=== PATIENT | male | born 1950 | race Caucasian/White ===

== ENCOUNTER 2017-03-05 22:05 | Inpatient (IN) ==
[2017-03-06 00:47] LABS: Basophils % 0.2 %; Eosinophils % 0.9 %; Hematocrit 28.9 % (37.5-50.1); Hemoglobin 10.1 g/dL (12.9-16.9); Immature Granulocytes % 0.2 % (0-4); Lymphocytes # 0.4 K/mcL (0.6-4.6); Lymphocytes % 8.3 %; Mean Corpuscular HGB Conc 34.9 g/dL (31.6-35.5); Mean Corpuscular Hemoglobin 34.6 pg (28.0-33.3); Mean Platelet Volume 9.9 fL (9.4-12.4); Monocytes # 0.6 K/mcL (0.0-1.3); Monocytes % 14.5 %; Neutrophils # 3.3 K/mcL (1.6-8.9); Platelet Count 101 K/mcL (140-400); Red Blood Count 2.92 M/mcL (4.19-5.50); Red Cell Distribution Width 17.3 % (11.5-14.5); Segmented Neutrophils % 75.9 %
[2017-03-06] MEDS ORDERED: *HR* HYDROcodone/Acet 5/325 mg TABLET PO PRN (00:51)
[2017-03-06] MEDS ORDERED: Acetaminophen 325 MG TABLET PO PRN (00:51)
[2017-03-06] MEDS ORDERED: Ondansetron 4 MG/2 ML VIAL IVP PRN (00:51)
[2017-03-06] MEDS ORDERED: Naloxone 0.4 MG/ML INJ IVP PRN (00:51)
[2017-03-06] MEDS ORDERED: *HR* Morphine 2 MG/ML SYRINGE IVP PRN (00:51)
[2017-03-06] MEDS ORDERED: MOM Conc 10 ML UD.LIQ PO PRN (00:51)
[2017-03-06] MEDS ORDERED: 0.9 % Sodium Chloride 1,000 ML IVC SCH (01:00)
[2017-03-06 01:01] LABS: BUN/Creatinine Ratio 19 (6-26); Blood Urea Nitrogen 23 mg/dL (8-26); Carbon Dioxide 20 mEq/L (19-29); Chloride 105 mEq/L (98-109); Glucose 98 mg/dL (70-99); Magnesium 1.9 mg/dL (1.6-2.6); Osmolality,Calculated 282 (280-300); Potassium 3.9 mEq/L (3.5-4.5); Sodium 134 mEq/L (136-145); eGFR For African Americans > 60 (> 60); eGFR For Non-African Americans > 60 (> 60)
--- NOTE | 2017-03-06 01:10 | Internal Med History&Physical ---
Date of Encounter: 03/06/17 Time of Encounter: 00:30 Assessment and Plan (1) Acute non-ST elevation myocardial infarction (NSTEMI) Current visit: Yes Status: Acute Admit the pt into Tele Reviewed his labs from [place] - Trop @ 0.725 his WBC - 4.5 Na; 133, K +-4.0, BUN/ Cr: 22/1.21 Reviewed EKG by myself.. NSR VR @79, abnormal T wave in lateral leads, Non specific ST changes in lateral leads will cont him on Heparin gtt NPO now -- for possible LHC in AM Trend on Trop + CK MB Card consulted Cont ASA + Metoprolol IV hydration (2) CAD (coronary artery disease), [place] coronary artery Current visit: Yes Status: Chronic s/p PCI in 2001 resumed home meds Qualifiers: Qualified Code(s): I25.10 - Atherosclerotic heart disease of [place] coronary artery without angina pectoris (3) HTN (hypertension) Current visit: Yes Status: Acute stable with current meds Qualifiers: Hypertension type: essential hypertension Qualified Code(s): I10 - Essential (primary) hypertension (4) Rectal adenocarcinoma Current visit: Yes Status: Acute need to f/u with Heme Onc from [place] (5) LA NENA (acute kidney injury) Current visit: Yes Status: Acute Mild LA NENA mostly dehydration started on gentle IV fluids (6) UTI (urinary tract infection) Current visit: Yes Status: Acute reviewed UA - showed large esterase will cont Rocephin - given at [facility] f/u on Urine cx Qualifiers: Qualified Code(s): N39.0 - Urinary tract infection, site not specified (7) Ileostomy care Current visit: Yes Status: Acute (8) BPH (benign prostatic hyperplasia) Current visit: Yes Status: Chronic resumed home med Flomax Qualifiers: Qualified Code(s): N40.0 - Benign prostatic hyperplasia without lower urinary tract symptoms Internal Medicine - H&P: HPI Chief complaint: Lightheadedness and dizziness Admitted From: Hospital to Hospital Transfer (From [facility]) Plans for Post Hospital Care: Home History of present illness: Mr. Goodson is a 66 year old male with known PMH of CAD s/p stent x 1 in 2001, who recently diagnosed Adeno carcinoma of rectum in 04/2016 underwent Chemo, radiotherapy as well as Derik colectomy with ileostomy in october 2016, and currently on active chemotherapy presented to [place] [facility] with worsening lightheadedness and dizziness from last couple of days. He was recently diagnosed with UTI and started on Bactrim as an out a week ago. He had further work up done at the [place] [facility], his Troponin were high @ 0.72 and T wave abnormality on the EKG. However pt denied any active CP. He was transferred to our hospital for further care. Our jewel bearing facer Dr. Rivas did review pt's EKG, labs and recommend to admit the pt into hospitalist service and consult cardiology in AM Past Med Surg Social Fam HX - Past Medical History Medical history: hyperlipidemia, hypertension, myocardial infarction - Past Surgical History Surgical History: colectomy, other - Social History Smoking Status: Never smoker Smokeless Tobacco Status: No Alcohol use: none Drug use: none - Family History Father Adopted: [place]: Daryn Goodson Family Member Ethnicity: Non- Living Status: Age at : 73 Cause of : heart failure Hx Family Cardiac Disorders: Yes Hx Family Respiratory Disorders: No Hx Family Cancer: No Hx Family GI Disorders: No Hx Family Genitourinary Disorders: No Hx Family Endocrine Disorder: Yes Internal Medicine - H&P: Meds Aspirin Enteric Coated [Aspirin EC] 81 mg PO DAILY 06/20/16 [History] Atorvastatin [Lipitor] 10 mg PO DAILY 06/20/16 [History] Glucosamine Sulfate Dipot Chlr [Glucosamine] 1,000 mg PO DAILY 06/20/16 [History ] Metoprolol [Lopressor] 0.5 tab PO BID 06/20/16 [History] Multivitamin [One Daily Multivitamin] 1 each PO DAILY 06/20/16 [History] Capecitabine [Xeloda] 1,500 mg PO BID 01/19/17 [History] Tamsulosin [Flomax] 0.4 mg PO DAILY 01/19/17 [History] 3 Allergy/AdvReac Type Severity Reaction Status Date / Time TAPE (TEGADERM) AdvReac Rash Uncoded 01/19/17 15:18 All Systems PM: A 10-system review of systems was performed and is negative for pertinent findings except as documented above in the HPI. Review of systems: All the systems are reviewed everything is benign except the systems and symptoms I mentioned in the history of present illness - Constitutional Vitals: Temp Pulse Resp BP Pulse Ox 98.0 F 75 16 104/68 100 03/06/17 00:14 03/06/17 00:14 03/06/17 00:14 03/06/17 00:14 03/06/17 00:14 General appearance: Present: A&O X 3, no acute distress, answers questions appropriately - Head Head exam: Present: atraumatic, normal inspection - Neck Neck exam general surgery: Present: supple - Respiratory Respiratory exam: Present: CTAB. Absent: accessory muscle use, rales, rhonchi, wheezes - Cardiovascular Cardiovascular exam: Present: RRR, +S1, +S2. Absent: diastolic murmur, gallop, rubs, systolic murmur - GI/Abdominal GI/Abdominal exam: Present: normal bowel sounds, soft. Absent: rebound, rigid, tenderness Additional comments: Ileostomy + - Extremities Exam Extremities exam: Absent: calf tenderness, pedal edema, tenderness - Back Exam Back exam: Absent: CVA tenderness (L), CVA tenderness (R) - Neurological Exam Neurological exam: Present: alert, oriented X3, no focal deficits - Psychiatric Psychiatric exam: Present: normal affect, normal mood - Skin Skin exam: Absent: rash Internal Med - H&P Results - Labs CBC & Chem 7: 03/06/17 00:40 03/06/17 00:40 Labs: Short CBC 03/06/17 Range/Units 00:40 WBC 4.3 (4.3-11.1) K/mcL Hgb 10.1 L (12.9-16.9) g/dL Hct 28.9 L (37.5-50.1) % Plt Count 101 L (140-400) K/mcL Neutrophils # 3.3 (1.6-8.9) K/mcL BMP 03/06/17 00:40 Sodium 134 L Potassium 3.9 Chloride 105 Carbon Dioxide 20 BUN 23 Creatinine 1.19 Glucose 98 Calcium 9.0
[2017-03-06] MEDS ORDERED: *HR* Heparin 5,000 UNIT/ML VIAL IVP ONE (01:40)
[2017-03-06] MEDS ORDERED: *HR* Heparin 5,000 UNIT/ML VIAL IVP PRN (01:40)
[2017-03-06] MEDS: Heparin 25,000 UNIT/500 ML D5W 25,000 UNIT/500 ML BAG IVC SCH (04:13)
[2017-03-06] MEDS: *HR* Heparin 5,000 UNIT/ML VIAL IVP PRN (04:18)
[2017-03-06 06:41] LABS: Chol/HDL Ratio 2.1 (0-4.9)
[2017-03-06 06:51] LABS: INR 5.7; Prothrombin Time 63.7 Seconds (9.4-12.1)
[2017-03-06] MEDS: Aspirin Enteric Coated 81 MG Tablet PO SCH (08:19)
[2017-03-06] MEDS: cefTRIAXone 1,000 MG in Water for inj. (sterile) 10 ML IVP SCH (08:19)
--- NOTE | 2017-03-06 11:08 | Cardiology Consult Note ---
Date of Encounter: 03/06/17 Time of Encounter: 09:00 Assessment and Plan (1) CAD (coronary artery disease), [place] coronary artery Current Visit: Yes Status: Chronic S/p stent 2001 Troponin .72 Pritesh, .84, .[address]/T-wave abnormality precordial leads Plan: No chest pain, shortness of breath, exertional discomfort, pending echocardiogram. Depending on echo results may consider LHC. Discussed plan with pt and understand and both agree to planned diagnostics /interventions. Qualifiers: [place] vs. transplanted heart: [place] heart Associated angina: without angina Qualified Code(s): I25.10 - Atherosclerotic heart disease of [place] coronary artery without angina pectoris (2) HTN (hypertension) Current Visit: Yes Status: Acute Chronic condition, normotensive, on Metoprolol 25mg PO BID. Qualifiers: Hypertension type: essential hypertension Qualified Code(s): I10 - Essential (primary) hypertension (3) Rectal adenocarcinoma Current Visit: Yes Status: Acute Currently taking Xeloda (Capecitabine). Xeloda has potential ADR profile for cardiotoxicity. Monitor. Pt following [facility] oncologist. (4) LA NENA (acute kidney injury) Current Visit: Yes Status: Acute On gentle hydration. Discussion w patient/family: The assessment and plan as outlined above was discussed with the patient and/or family members who expressed understanding and agreement. All questions were answered. Thank you for involving us in the care of your patient. Please call with any questions. History of Present Illness Consult date: 03/06/17 Requesting physician: Pradeep Lui Consult reason: Elevated Troponin, ST/T-wave abnormality Chief complaint: Lightheadness, dizziness History of present illness: Mr. Goodson, 66y/o presents with 2 days of lightheadedness and dizziness with PMH CAD s/p stenting x1 2001, diagnosis of Adeno carcinoma of rectum Apr 2016, on chemo. Transferred from [place] for troponin of 0.72 with t-wave abnormality on ECG, denying chest/arm/jaw/back symptoms. Past social: never-smoker, no EtOH , reports jogging a few miles a week, was more active prior to diagnosis of cancer. Cardiology consulted for troponin elevation (.72 Pritesh, .84, .73), ECG repeated showing persisting ST abnormality. Pt has no new symptoms, reports mild lightheadedness. Denies chest/arm/jaw/back symptoms. Past Med Surg Social Fam HX - Past Medical History Medical history: hyperlipidemia, hypertension, myocardial infarction - Past Surgical History Surgical History: colectomy, other - Social History Smoking Status: Never smoker Smokeless Tobacco Status: No Alcohol use: none Drug use: none - Family History Father Adopted: [place]: Daryn Goodson Family Member Ethnicity: Non- Living Status: Age at : 73 Cause of : heart failure Hx Family Cardiac Disorders: Yes Hx Family Respiratory Disorders: No Hx Family Cancer: No Hx Family GI Disorders: No Hx Family Genitourinary Disorders: No Hx Family Endocrine Disorder: Yes Medications and Allergies Aspirin Enteric Coated [Aspirin EC] 81 mg PO DAILY 06/20/16 [History] Atorvastatin [Lipitor] 10 mg PO DAILY 06/20/16 [History] Glucosamine Sulfate Dipot Chlr [Glucosamine] 1,000 mg PO DAILY 06/20/16 [History ] Metoprolol [Lopressor] 25 tab PO BID 06/20/16 [History] Multivitamin [One Daily Multivitamin] 1 each PO DAILY 06/20/16 [History] Capecitabine [Xeloda] 1,300 mg PO BID 01/19/17 [History] Tamsulosin [Flomax] 0.4 mg PO DAILY 01/19/17 [History] RX: Sulfamethoxazole/Trimeth DS [Bactrim Ds] 1 tab PO BID 03/06/17 [History] 3 Allergy/AdvReac Type Severity Reaction Status Date / Time TAPE (TEGADERM) AdvReac Rash Uncoded 03/06/17 07:27 All Systems Review: A 10-system review of systems was performed and is negative for pertinent findings except as documented above in the HPI. Physical Examination Vital Signs, Last 4 Hours Temp Pulse Resp BP Pulse Ox 03/06/17 07:51 97.7 F 83 18 101/44 97 General: Conversant, Other (slim body habitus, chest hair) HEENT: Atraumatic, Normocephaly Neck: No JVD, Normal carotid pulses Cardiac: Reg Rate and Rhythm, Normal S1 and S2, No Murmur Lungs: No Wheeze, Rales, Rhonchi Neuro: No focal deficits noted Abdomen: Soft Musculoskeletal: No Chest Wall Tenderness Extremities: No Clubbing, No Cyanosis, No Edema Results 03/06/17 00:40 03/06/17 00:40 Lab Results 03/06/17 03/06/17 03/06/17 00:40 00:40 00:40 WBC 4.3 Hgb 10.1 L Hct 28.9 L Plt Count 101 L INR APTT TNP Sodium 134 L Potassium 3.9 Chloride 105 Carbon Dioxide 20 BUN 23 Creatinine 1.19 Glucose 98 Calcium 9.0 Magnesium 1.9 Troponin I 03/06/17 03/06/17 03/06/17 00:40 02:15 06:10 WBC Hgb Hct Plt Count INR APTT 33.0 Sodium Potassium Chloride Carbon Dioxide BUN Creatinine Glucose Calcium Magnesium Troponin I 0.84 H* 0.73 H* 03/06/17 06:10 WBC Hgb Hct Plt Count INR 5.7 H* APTT Sodium Potassium Chloride Carbon Dioxide BUN Creatinine Glucose Calcium Magnesium Troponin I Consult Discharge Plan - Plan Referrals: Patrick Long MD [Primary Care Provider] - 03/17/17 2:00 pm (Follow up with Siri Subramanian CNP)
[2017-03-06 12:44] LABS: INR 1.2
--- NOTE | 2017-03-06 12:45 | Internal Med Progress Note ---
<MayDarrel lilly - Last Filed: 03/06/17 12:53> Date of Encounter: 03/06/17 Time of Encounter: 12:17 - Assessment and plan (1) Acute non-ST elevation myocardial infarction (NSTEMI) Current Visit: Yes Status: Acute Assessment and plan: Elevated serial troponins EKG NSR VR @79, abnormal T wave in lateral leads, Non specific ST changes in lateral leads Continue on Heparin gtt NPO for possible heart cath Appreciate cardiology input Cont ASA + Metoprolol (2) CAD (coronary artery disease), [place] coronary artery Current Visit: Yes Status: Chronic Assessment and plan: s/p PCI in 2001 Continue home meds (Lopressor, ASA, Lipitor) (3) HTN (hypertension) Current Visit: Yes Status: Acute Assessment and plan: stable Qualifiers: Hypertension type: essential hypertension Qualified Code(s): I10 - Essential (primary) hypertension (4) Rectal adenocarcinoma Current Visit: Yes Status: Acute Assessment and plan: Following with heme/Onc in [place] (5) LA NENA (acute kidney injury) Current Visit: Yes Status: Acute Assessment and plan: Mild LA NENA Received IV hydration Resolved as of this morning's labs (6) UTI (urinary tract infection) Current Visit: Yes Status: Acute Assessment and plan: Large leukocyte esterase on UA Continue Rocephin Follow urine culture Qualifiers: Qualified Code(s): N39.0 - Urinary tract infection, site not specified - Subjective Interval history: 66-year-old male presented to outside ED for lightheadedness/dizziness and was found to have elevated troponin (0.72, 0.84, 0.73). Transferred to [facility] where he was admitted for cardiac workup. Repeat EKG here showed persistent ST abnormality. Patient denied chest pain, arm/jaw/back symptoms. - Constitutional Vitals: Temp Pulse Resp BP Pulse Ox 97.8 F 68 17 85/54 96 03/06/17 11:05 03/06/17 11:05 03/06/17 11:05 03/06/17 11:05 03/06/17 11:05 General appearance: Present: A&O X 3, no acute distress, answers questions appropriately Internal Medicine: Result - Labs CBC & Chem 7: 03/06/17 00:40 03/06/17 00:40 Labs: Short CBC 03/06/17 Range/Units 00:40 WBC 4.3 (4.3-11.1) K/mcL Hgb 10.1 L (12.9-16.9) g/dL Hct 28.9 L (37.5-50.1) % Plt Count 101 L (140-400) K/mcL Neutrophils # 3.3 (1.6-8.9) K/mcL BMP 03/06/17 00:40 Sodium 134 L Potassium 3.9 Chloride 105 Carbon Dioxide 20 BUN 23 Creatinine 1.19 Glucose 98 Calcium 9.0 Cardiac Enzymes 03/06/17 03/06/17 Range/Units 00:40 06:10 Troponin I 0.84 H* 0.73 H* (0-0.03) ng/mL - ABG Interpretation ABG results: PT/INR, D-dimer PT 63.7 Seconds (9.4-12.1) H* 03/06/17 06:10 Consult Discharge Plan - Plan Referrals: Patrick Long MD [Primary Care Provider] - 03/17/17 2:00 pm (Follow up with Siri Subramanian CNP) <Clem Gaytan H - Last Filed: 03/06/17 15:18> Date of Encounter: 03/06/17 - Constitutional Vitals: Temp Pulse Resp BP Pulse Ox 97.8 F 68 17 85/54 96 03/06/17 11:05 03/06/17 11:05 03/06/17 11:05 03/06/17 11:05 03/06/17 11:05 Internal Medicine: Result - Labs CBC & Chem 7: 03/06/17 00:40 03/06/17 00:40 Labs: Short CBC 03/06/17 Range/Units 00:40 WBC 4.3 (4.3-11.1) K/mcL Hgb 10.1 L (12.9-16.9) g/dL Hct 28.9 L (37.5-50.1) % Plt Count 101 L (140-400) K/mcL Neutrophils # 3.3 (1.6-8.9) K/mcL BMP 03/06/17 00:40 Sodium 134 L Potassium 3.9 Chloride 105 Carbon Dioxide 20 BUN 23 Creatinine 1.19 Glucose 98 Calcium 9.0 Cardiac Enzymes 03/06/17 03/06/17 03/06/17 Range/Units 00:40 06:10 12:25 Troponin I 0.84 H* 0.73 H* 0.55 H* (0-0.03) ng/mL - ABG Interpretation ABG results: PT/INR, D-dimer PT 13.0 Seconds (9.4-12.1) H D 03/06/17 12:25 - Impressions Impressions Echocardiogram 03/06/17 10:16 Impressions: LVEF 55%. Normal LV systolic function with mild hypokinesis of the basal inferolateral wall. Mild left ventricular diastolic dysfunction. Normal right ventricular structure and function. Mild mitral regurgitation. No pulmonary hypertension. Left Ventricular Wall Motion: Rest Echo Findings The basal inferior lateral wall was hypokinetic. All other wall segments showed normal motion. Findings: Study Quality * Technically adequate exam. ECG Findings * Normal sinus rhythm. Left Ventricle * LVEF 55%. * Normal LV chamber size, wall thickness and function. * Basal sigmoid septum. * Mild left ventricular diastolic dysfunction. Right Ventricle * Normal right ventricular structure and function. Left Atrium * Normal left atrial size. Right Atrium * Normal right atrial size. Aortic Valve * No aortic regurgitation. * Trileaflet aortic valve. * Normal aortic valve structure. * No aortic stenosis. Mitral Valve * Normal mitral valve structure. * No mitral stenosis. * Mild mitral regurgitation. Tricuspid Valve * Normal tricuspid valve structure. * Trace tricuspid regurgitation. * Estimated RA pressure is 3 mmHg. * Estimated RVSP is 20 mmHg. * No pulmonary hypertension. Pulmonic Valve * Pulmonic valve is not well visualized. * No pulmonic stenosis. * Trace pulmonic regurgitation. Pulmonary Artery * Pulmonary artery not well visualized. Aorta * Normally sized aortic root. Pericardium * There is no pericardial effusion present. Interatrial Septum * No evidence of PFO by color Doppler. IVC * Normal IVC dimensions and inspiratory collapse. - Attending Attestation Cardiac catheterization today UTI, it grew Escherichia coli on March 03 which was pansensitive Continue Rocephin day 2 I examined this patient and my medical decision-making was reviewed with the Resident Physician. I agree with the documented findings, disposition and treatment plan as described except to the extent set forth below.
[2017-03-06 13:02] LABS: Activated Partial Thrombo Time 166.2 Seconds (26.0-36.0)
[2017-03-06 13:25] LABS: Heparin anti-factor XA UFH 0.74 IU/mL (0.30-0.70)
[2017-03-06] MEDS ORDERED: 0.9 % Sodium Chloride 1,000 ML ONE ×2 (17:18→17:46)
[2017-03-06] MEDS ORDERED: Nitroglycerin 1,000 MCG/10 ML VIAL IV ONE (17:18)
[2017-03-06] MEDS ORDERED: *HR* Heparin 10,000 UNIT/10 ML VIAL ONE (17:18)
[2017-03-06] MEDS ORDERED: Heparin 1,000 UNIT, 0.9 % Sodium Chloride 500 ML INARTERIAL ONE (17:30)
[2017-03-06] MEDS ORDERED: *HR* Midazolam HCl 2 MG/2 ML VIAL ONE (17:50)
--- NOTE | 2017-03-06 18:37 | Invasive Diagnostic Lab Proc ---
Name: FREDIS GARCIA Date of Study: 03/06/2017 Date: 1950 Ht: 65.0in Medical Record#: [id number] Age: 66 Wt: 127.87lb Gender: Male BSA: 1.63 Order #: [id number] BMI: 21.3 Physicians Procedure Physician: Lawrence Rivas DO Referring MD: Patrick Long MD Referring MD: Staff Name Position Time In Yajaira Torres RN Monitor 05:56 PM Chanel Cosme RN Nursing Department Chairperson 05:57 PM Karina Ramírez RT Scrub 05:57 PM Indications Indication Non-Stemi Procedures Performed Procedure L HRT ARTERY/VENTRICLE ANGIO Pre-Procedure Checklist Informed consent is complete signed and on chart. H&P is on chart. ID band is on and ID verified with patient. Patient NPO for procedure The procedure was described for the patient and questions were answered. Blood Pressure: 114/65 ECG is on chart. Rhythm: NSR Plan of Care Patient will tolerate the procedure without complications. Adequate level of comfort will be maintained. Hemodynamics will remain stable Patient will recover from procedure without complications. Respiratory function will be maintained. Cardiac rhythm will remain stable. Patient temperature will be maintained. Patient and/or family have verbalized understanding of the procedure. Patient Education Chief Complaint/Reason for Test: Cardiac Cath Developmental Category: Adult (18-64 years) Developmentally Appropriate for Age: Yes Learning Barriers: None Education Needs: Procedure Education Method: Verbal Information Taught: Cardiac Cath Educational Evaluation: Able to repeat information Intravenous Access Time IV Size Location DC'd Fluid/Drip Rate Units RN 05:55 PM Venous access port Lt Subclavian 0.9NaCl 25 ml/hr Yajaira Torres RN Allergies TAPE (TEGADERM) Vital Signs Time BP (mmHg) HR (bpm) O2 Sat. RR (bpm) LOC 05:56 PM 114 / 65 69 100 % 16 5 = Fully awake and oriented or at pre-proc level 05:58 PM / % 5 = Fully awake and oriented or at pre-proc level 05:56 PM 105 / 67 74 100 % 14 06:01 PM 115 / 78 68 100 % 29 06:06 PM 115 / 68 67 100 % 15 06:11 PM 112 / 70 72 100 % 15 06:16 PM 111 / 71 74 100 % 16 06:21 PM 116 / 74 79 100 % 16 05:51 PM 114 / 65 76 100 % 18 05:58 PM / % 4 = Oriented but drowsy 06:13 PM / % 5 = Fully awake and oriented or at pre-proc level Procedural Medications Time Medication Dose Units Method Given By 05:57 PM Oxygen 2 L/min nasal cannula Chanel Cosme RN 05:57 PM Versed 2 mg Intravenous Chanel Cosme RN 05:59 PM Lidocaine 2% 10 ml Subcutaneous Lawrence Rivas DO ASA Classification: CLASS II- Mild systemic disease (i.e. well-controlled diabetes, hypertension, asthma, cigarette smoking) [place] Score Preprocedure Postprocedure Activity 2- Moves 4 extremities sustained head lift Activity 2- Moves 4 extremities sustained head lift Circulation 2- SBP +/= 20 points of pre-anesthetic level Circulation 2- SBP +/= 20 points of pre-anesthetic level Consciousness 2- Awake and alert oriented x 3 Consciousness 2- Awake and alert oriented x 3 O2 Saturation 2- Able to maintain O2 satruation of 92% on room air O2 Saturation 2- Able to maintain O2 satruation of 92% on room air Respiratory 2- Able to deep breathe and cough well Respiratory 2- Able to deep breathe and cough well Total Score 10 Total Score 10 Contrast Agent: Isovue Diagnostic Contrast: 47 ml Total Contrast: 47 ml Fluoro Dose: 123 mGy Procedure Log Time Note Enter By 05:50 PM CathStat 05:50 PM Vitals capture started with the following parameters, Patient=Adult, Interval=5 min, Initial Gpfxwmmj=562 mmHg, Deflation Rate=5 mmHg, Cuff placed on Right Arm 05:51 PM HR=76 bpm, OPPE=064/65 mmhg, EgX6=685.0 %, Resp=18 B/min, Comment=NSR 05:52 PM Recorded ECG: HR=67 Condition=Condition 1 05:56 PM HR=74 bpm, MJMT=830/67 mmhg, GvA7=939.0 %, Resp=14 B/min, Comment=NSR 05:56 PM Pt arrived to [facility] found[facility] lab[facility] 2 at 17:56 [facility] 05:56 PM Physician arrived 17:56 [facility] 05:56 PM Meet and greet completed [facility] 05:56 PM Sign in performed according to hospital policy. [facility] 05:56 PM Procedure start 17:56 [facility] 05:57 PM Pressure channel 1 zeroed. 05:57 PM Parsley, Yajaira RN Position: Monitor [facility]: 17:56 [facility] Chanel Cosme RN Position: Nursing Department Chairperson Time in: : [facility] :57 PM Karina Ramírez Position: Scrub Time in: :57 [facility] 05:57 PM Patient charges- Angio tray pack, Navilyst 3mm J, Pulse Oximetry and ACIST tubing and transducer [facility] :57 PM Case Delayed No [facility] PM Hair removed from procedure site in procedure lab using clippers. Bilateral groin prepped with Chloraprep by Yajaira Torres RN, safety strap applied then patient was draped. Skin intact. [facility] :57 PM ASA Class CLASS II- Mild systemic disease (i.e. well-controlled diabetes, hypertension, asthma, cigarette smoking) [facility] 57 PM Time: 17:57 Oxygen on at 2 L/min per nasal cannula by Chanel Cosme RN [facility] 57 PM Time: 17:57 Versed 2 mg Intravenous Given by Chanel Cosme RN [facility] 58 PM Time: 17:57 Patient comfortable and pain free: Yes [facility] 58 PM Time: 17:58LOC: 5 = Fully awake and oriented or at pre-proc level [facility] :58 PM Clinical Presentation: Non-STEMI [facility] 58 PM Time out performed according to hospital policy [facility] 05:59 PM Time: 17:59 10 ml Lidocaine 2% to right groin Subcutaneous Given by Lawrence Rivas DO [facility] 06:00 PM Micro-Introducer Kit utilized for sheath placement [facility] 06:00 PM Access obtained by percutaneous puncture. 6Fr 10cm Terumo [place] sheath placed in right Femoral artery. [id number] [facility] 06:01 PM 0.035 145cm Navilyst 3mmJ wire [id number] [facility] 06:01 PM HR=68 bpm, UQZT=606/78 mmhg, PnH4=223.0 %, Resp=29 B/min, Comment=NSR 06:01 PM 6Fr FR 4 catheter inserted over the wire DNC [facility] 06: PM Catheter selectively placed in left ventricle [facility] 06:01 PM bolus angio left ventricle hand injected [facility] 06:02 PM Recorded Pressure: LV, HR=69, Condition=Condition 1 (Left Ventricle) LV 108/0/6 06:02 PM Recorded Pressure: Ao, HR=71, Condition=Condition 1 (Aorta) Ao 110/36/66 06:02 PM RCA angiography performed in multiple views. [facility] 06:03 PM Catheter removed [facility] 06:03 PM Lesion found in Mid RCA. Pre Stenosis: 30 Pre SURY Flow: 3: Complete and Brisk Flow/Perfusion [facility] 06:03 PM 6Fr FL 4 catheter inserted over the wire [facility] lparsley 06:03 PM LCA angiography performed in multiple views. [facility]ley 06:04 PM Recorded Pressure: Ao, HR=68, Condition=Condition 1 (Aorta) Ao 106/51/73 06:05 PM Recorded Pressure: Ao, HR=68, Condition=Condition 1 (Aorta) Ao 107/49/72 06:[address] Diallo [facility] 06:06 PM HR=67 bpm, CLQH=048/68 mmhg, LlO9=662.0 %, Resp=15 B/min, Comment=NSR 06:06 PM Coronary Dominance: right [facility] 06:06 PM Right Coronary, Right Posterior Descending Arteries with Right Posterolateral and Acute Marginal branches with 30 % stenosis. [facility] 06:07 PM Recorded Pressure: Ao, HR=74, Condition=Condition 1 (Aorta) Ao 105/52/74 06:08 PM Catheter removed [facility] 06:09 PM Bolus angio of right groin hand injected [facility] 06:11 PM Procedure completed at 18:11 [facility] 06:11 PM HR=72 bpm, KYQX=177/70 mmhg, VqJ0=908.0 %, Resp=15 B/min, Comment=NSR 06:13 PM Time: 17:58LOC: 4 = Oriented but drowsy [facility] 06:13 PM Time: 17:58 Patient comfortable and pain free: Yes [facility] 06:13 PM Sign out completed: Radiation Dose 123.41 mGy Fluoro Time: 1.8 Isovue 370 - 200ml contrast 47 ml given by Lawrence Rivas DO. Complications: NoneCardiac Rehab Consult needed: YesConfirmed administered medications: Yes [facility] Isovue 370 - 200ml,1 Bottle(s) used. [facility] 06:16 PM HR=74 bpm, TNMW=918/71 mmhg, UdM9=088.0 %, Resp=16 B/min, Comment=NSR 06:17 PM Arterial sheath pulled, Mynx closure device used and was Failed [id number] S/N. [facility] 06:21 PM HR=79 bpm, HWWO=408/74 mmhg, YaD5=502.0 %, Resp=16 B/min, Comment=NSR 06:21 PM Mynx was defective. Missing tamper and plug [facility] 06:22 PM Arterial site held using manual compression and for 15 minutes by Karina Ramírez RT [facility] 06:22 PM Estimated Blood Loss: minimal [facility] 06:22 PM Post ECG NSR [facility] 06:22 PM Post Blood Pressure 116/74 [facility] 06:22 PM 18:22 Post Pulses Bilateral DP & PT 2+ [facility] 06:22 PM Information taught Cardiac Cath and Mynx [facility] 06:23 PM Education needs Procedure, Plan of Care, and Safe & Effective Use of Medications [facility] 06:23 PM Learning barriers :None [facility] 06:23 PM Education Methods Verbal [facility] 06:23 PM Education evaluation Able to repeat information [facility] 06:23 PM Site status No bleeding/hematoma - Rt Groin as reported by Karina Ramírez at 18:23 [facility] 06:23 PM Opsite applied [facility] 06:24 PM Report given to Camille GONZALEZ Pt taken to 2A Room #24. 18:23 [facility] 06:25 PM Plavix, Effient or Brilinta given No [facility] 06:25 PM Delay to floor No [facility] 06:25 PM Patient out of room: 18:25 [facility] 06:25 PM Family placed in consult room. [facility] 06:25 PM Complications: None [facility] 06:25 PM Fluoro Time: 1.8 [facility] 06:25 PM Isovue 370 - 200ml contrast 47 ml given by Lawrence Rivas DO. [facility] 06:26 PM Radiation Dose 123.41 mGy [facility] 06:27 PM Lesion found in LMCA. Pre Stenosis: 70 Pre SURY Flow: 3: Complete and Brisk Flow/Perfusion [facility] 06:28 PM Lesion found in Proximal LAD. Pre Stenosis: 80 Pre SURY Flow: 3: Complete and Brisk Flow/Perfusion [facility] 06:28 PM Lesion found in Proximal Circumflex. Pre Stenosis: 80 Pre SURY Flow: 3: Complete and Brisk Flow/Perfusion [facility] 06:28 PM Time: 18:13 Patient comfortable and pain free: Yes [facility] 06:28 PM Time: 18:13LOC: 5 = Fully awake and oriented or at pre-proc level [facility] 06:28 PM Left Main Coronary Artery with 70% stenosis [facility] 06:28 PM Proximal Left Anterior Descending Coronary Artery with 80% stenosis. [facility] 06:28 PM Circumflex, Obtuse Marginal, Left Posterior Descending, and Left Posterolateral Coronary Arteries with 80 % stenosis. [facility] PM Cardiothoracic surgeon consulted by physician [facility] 06:30 PM Physician consulting with Marleny sandoval Complications Complication None Hemodynamics Pressures Site Systolic/A Wave Diastolic/V Wave Mean LV 108 0 6 AO 110 36 66 AO 106 51 73 AO 107 49 72 AO 105 52 74 Post Procedure Information Blood Pressure: 116/74 mmHg Rhythm: NSR Post procedural instructions were given Closure Device Time Device Success/Fail 03/06/2017 6:26:00 PM MynxGrip Failed Site Checks Time Location Status Staff Sheath In? Note 06:23 PM Rt Groin No bleeding/hematoma Karina Ramírez RT Pulses Time Site Pre-Procedure Post-Procedure Note 03/06/2017 5:26:00 PM Bilateral DP & PT 2+ 03/06/2017 5:26:00 PM Bilateral radial 2+ 6:22:00 PM Bilateral DP & PT 2+ Updated by Yajaira Torres RN on 03/06/2017 6:31:19 PM electronically signed on 03/06/2017 6:32:19 PM with status of Final
[2017-03-07] MEDS: *HR* Heparin 5,000 UNIT/ML VIAL IVP PRN (02:00)
[2017-03-07 06:46] VITALS: BP 101/52
--- NOTE | 2017-03-07 07:51 | Cardiothoracic Consult Note ---
Date of Encounter: 03/07/17 Time of Encounter: 07:50 Assessment and Plan (1) CAD (coronary artery disease), [place] coronary artery Current Visit: Yes Status: Chronic The patient is a 66-year-old man with cT3N1b rectal adenocarcinoma was currently undergoing adjuvant chemotherapy after his left hemicolectomy and ileostomy. He presented to [facility] with complaints of dizziness and lightheadedness and was found to have elevated troponin I levels consistent with acute cardiac injury. He was transferred to [facility] for further cardiac care. He underwent cardiac catheterization yesterday was found to have severe 3 vessel CAD and an LVEF 35%. The patient has been offered other high risk CABG or high risk left main PCI with Impella support. While the patient would probably better long-term result from CABG, the operation is at considerable risk given his current debilitated state and diminished LVEF. With either treatment however, the patient will require transfer to a tertiary [facility]. The patient is currently considering his options and will discuss these with his family. The assessment and plan as outlined above was discussed with the patient and/or family members who expressed understanding and agreement. All questions were answered. Qualifiers: [place] vs. transplanted heart: [place] heart Associated angina: without angina Qualified Code(s): I25.10 - Atherosclerotic heart disease of [place] coronary artery without angina pectoris - History of Present Illness Consult date: 03/06/17 Requesting physician: Lawrence Rivas Consult reason: CABG evaluation. Chief complaint: Dizziness, lightheadedness with elevated troponins. History of present illness: Mr. Goodson is a 66 year old man with cT3N1b rectal adenocarcinoma who presented to [facility] with complaints of dizziness and lightheadedness. He underwent a left hemicolectomy with ileostomy in October 2016 for the rectal adenocarcinoma. Currently he is undergoing adjuvant chemotherapy. During his evaluation at her hospital he was noted have elevated troponin I levels consistent with an acute cardiac injury. He was treated medically and transferred to [facility] for further care. The patient underwent cardiac catheterization yesterday and was found to have severe 3 vessel CAD and an LVEF 35%. In particular, the patient is a 70% left main lesion, a 90% proximal LAD lesion, an 80-90% proximal LCx lesion, and a 30 % mid RCA lesion. I have been asked to evaluate the patient for possible high risk CABG versus high risk PCI as treatment options for his severe CAD. Past Med Surg Social Fam HX - Past Medical History Medical history: cancer (Rectal adenocarcinoma, T3N1b), coronary artery disease , hyperlipidemia, hypertension, myocardial infarction - Past Surgical History Surgical History: colectomy (Left hemicolectomy with ileostomy), other (A-port insertion) - Social History Smoking Status: Never smoker Smokeless Tobacco Status: No Alcohol use: none Drug use: none Current living situation: Home - Independent Activity Level: Independent ambulation Recent Out of Country Travel Within the Last 8 Weeks: No Exposure or Possible Exposure to Illness During Travel: No - Family History Father Adopted: [place]: Daryn Goodson Family Member Ethnicity: Non- Living Status: Age at : 73 Cause of : heart failure Hx Family Cardiac Disorders: Yes Hx Family Respiratory Disorders: No Hx Family Cancer: No Hx Family GI Disorders: No Hx Family Genitourinary Disorders: No Hx Family Endocrine Disorder: Yes Medications and Allergies Aspirin Enteric Coated [Aspirin EC] 81 mg PO DAILY 06/20/16 [History] Atorvastatin [Lipitor] 10 mg PO DAILY 06/20/16 [History] Glucosamine Sulfate Dipot Chlr [Glucosamine] 1,000 mg PO DAILY 06/20/16 [History ] Metoprolol [Lopressor] 25 tab PO BID 06/20/16 [History] Multivitamin [One Daily Multivitamin] 1 each PO DAILY 06/20/16 [History] Capecitabine [Xeloda] 1,300 mg PO BID 01/19/17 [History] Tamsulosin [Flomax] 0.4 mg PO DAILY 01/19/17 [History] Sulfamethoxazole/Trimeth DS [Bactrim Ds] 1 tab PO BID 03/06/17 [History] 3 Allergy/AdvReac Type Severity Reaction Status Date / Time TAPE (TEGADERM) AdvReac Rash Uncoded 03/06/17 07:27 All Systems Review: A 10-system review of systems was performed and is negative for pertinent findings except as documented above in the HPI. Physical Examination Vital Signs, Last 4 Hours Temp Pulse Resp BP Pulse Ox 03/07/17 06:44 98.9 F 89 16 101/52 99 03/07/17 04:44 98.3 F 92 17 104/62 97 General: Conversant, No Apparent Distress Neck: No JVD, Normal carotid pulses Cardiac: Reg Rate and Rhythm, Normal S1 and S2, No Murmur Lungs: Normal Breath Sounds, No Wheeze, Rales, Rhonchi Neuro: Alert and responsive, No focal deficits noted Vascular: Normal capillary refill Abdomen: Soft, Non-tender, Other (Ileostomy functioning, pink and viable) Extremities: No Clubbing, No Cyanosis, No Edema, Normal Pulses Results 03/06/17 00:40 03/06/17 00:40 Lab Results, Last 24 hours 03/06/17 03/06/17 03/07/17 12:25 12: 00:19 INR 1.2 D APTT 166.2 H* D 31.8 D Troponin I 0.55 H* Consult Discharge Plan - Plan Referrals: Patrick Long MD [Primary Care Provider] - 03/17/17 2:00 pm (Follow up with Siri Subramanian CNP)
--- NOTE | 2017-03-07 09:17 | Cardiology Progress Note ---
Date of Encounter: 03/07/17 Time of Encounter: 09:14 Assessment and Plan (1) Acute non-ST elevation myocardial infarction (NSTEMI) Current Visit: Yes Status: Acute s/p LHC, which demonstrated significant LM, osital LAD, and proximal Cx stenoses. Patient evaluated by CT surgery, referral recommended CABG vs high risk PCI. All of patient's physicians are at [facility], patient prefers to be transfered there. Case discussed with hospitalist, who will arrange for transfer. Continue ACS therapy, including aspirin/statin/bb and heparin drip. DAPT has been held due to potential need for surgery. Family and patient updated, all questions answered. Please call if any further questions or concerns. Discussion w patient/family: The assessment and plan as outlined above was discussed with the patient and/or family members who expressed understanding and agreement. All questions were answered. Thank you for involving us in the care of your patient. Please call with any questions. Subjective Principal diagnosis: Abnormal ECG, Elevated troponin Interval history: Patient reports doing well this morning - no chest discomfort reported. No complications from [facility]. Objective Vital Signs, Last 4 Hours Temp Pulse Resp BP Pulse Ox 03/07/17 06:44 98.9 F 89 16 101/52 99 General: Conversant, No Apparent Distress, Other (Somewhat frail appearing) HEENT: Atraumatic, Normocephaly, Mucus Membranes Moist Neck: No JVD, Normal carotid pulses Cardiac: Reg Rate and Rhythm, Normal S1 and S2, No Murmur Lungs: Normal Breath Sounds, No Wheeze, Rales, Rhonchi Neuro: Alert and responsive, No focal deficits noted Abdomen: Soft, Non-Tender Skin: No rashes noted on visualized skin Musculoskeletal: No Chest Wall Tenderness Extremities: No Clubbing, No Cyanosis, No Edema Results 03/06/17 00:40 03/06/17 00:40 Lab Results 03/06/17 03/06/17 03/07/17 12:25 12:25 00:19 INR 1.2 D APTT 166.2 H* D 31.8 D Troponin I 0.55 H* 03/07/17 07:55 INR APTT 64.2 H D Troponin I - Imaging and Cardiology Echo: report reviewed Cardiac cath: report reviewed - EKG Interpretation EKG results cardiology: personally reviewed Consult Discharge Plan - Plan Referrals: Patrick Long MD [Primary Care Provider] - 03/17/17 2:00 pm (Follow up with Siri Subramanian CNP)
[2017-03-07] MEDS: Heparin 25,000 UNIT/500 ML D5W 25,000 UNIT/500 ML BAG IVC SCH (09:53)
[2017-03-07] MEDS: Aspirin Enteric Coated 81 MG Tablet PO SCH (09:55)
[2017-03-07] MEDS: cefTRIAXone 1,000 MG in Water for inj. (sterile) 10 ML IVP SCH (09:55)
--- NOTE | 2017-03-07 12:39 | Discharge Summary ---
<Olvin Mata - Last Filed: 03/07/17 12:39> Date of Encounter: 03/07/17 Time of Encounter: 12:30 - Discharge Diagnosis (1) Acute non-ST elevation myocardial infarction (NSTEMI) Priority: Primary Status: Acute (2) CAD (coronary artery disease), [place] coronary artery Priority: Secondary Status: Chronic Qualifiers: [place] vs. transplanted heart: [place]ebbins heart Associated angina: without angina Qualified Code(s): I25.10 - Atherosclerotic heart disease of stebbins coronary artery without angina pectoris (3) HTN (hypertension) Priority: Secondary Status: Acute Qualifiers: Hypertension type: essential hypertension Qualified Code(s): I10 - Essential (primary) hypertension (4) Rectal adenocarcinoma Priority: Secondary Status: Acute (5) Ileostomy care Priority: Secondary Status: Acute (6) BPH (benign prostatic hyperplasia) Priority: Secondary Status: Chronic (7) LA NENA (acute kidney injury) Priority: Secondary Status: Acute (8) UTI (urinary tract infection) Priority: Secondary Status: Acute - Discharge Medications Home Medications: Aspirin Enteric Coated [Aspirin EC] 81 mg PO DAILY 06/20/16 [History] Atorvastatin [Lipitor] 10 mg PO DAILY 06/20/16 [History] Glucosamine Sulfate Dipot Chlr [Glucosamine] 1,000 mg PO DAILY 06/20/16 [History ] Metoprolol [Lopressor] 25 tab PO BID 06/20/16 [History] Multivitamin [One Daily Multivitamin] 1 each PO DAILY 06/20/16 [History] Capecitabine [Xeloda] 1,300 mg PO BID 01/19/17 [History] Tamsulosin [Flomax] 0.4 mg PO DAILY 01/19/17 [History] Sulfamethoxazole/Trimeth DS [Bactrim Ds] 1 tab PO BID 03/06/17 [History] Allergies/Adverse Reactions: 3 Allergy/AdvReac Type Severity Reaction Status Date / Time TAPE (TEGADERM) AdvReac Rash Uncoded 03/06/17 07:27 Procedures/tests Complete & Pending: Procedures Performed prior 72 hours Category Date Time Status CL Cardiac Catheterization [CL] Routine Medical Accountant 03/06/17 14:59 Completed ECG 12 lead ECG [ECG] AM 0600 Y 03/06/17 06:00 Completed ECG 12 lead ECG [ECG] Routine Y 03/06/17 09:18 Completed EV echocardiogram Routine Y 03/06/17 10:16 Completed Date of admission: 03/06/17 00:51 Primary care physician: Patrick Long MD Consults: 03/06/17 01:36 Consult to Cardiology [CONS] Routine Comment: Consulting Provider: Kadi Salas Reason for Consult: Acute NSTEMI Call Completed: Yes 03/06/17 15:58 Consult to Cardiac Rehabilitation-Phase1 [CONS] Routine Comment: Reason for Consult: NSTEMI Call Completed: No Discharging clinician: Olvin Mata Anticipated date of discharge: 03/07/17 - Patient Status Disposition: Transfer Critical Access Hosp Overall status at discharge: patient is progressing back to baseline - Discharge Instructions Follow Up With: Patrick Long MD [Primary Care Provider] - 03/17/17 2:00 pm (Follow up with Siri Subramanian CNP) - Diet and Activity Activity: increase activity as tolerated Diet: advance to your usual diet Hospital course: Mr. Goodson is a 66 year old male with known PMH of CAD s/p stent x 1 in 2001, Adeno carcinoma of rectum, Derik colectomy with ileostomy in october 2016 who presented to [facility] with worsening lightheadedness and dizziness of a few days' duration. He was recently diagnosed with UTI and started on Bactrim as an out a week ago. He had further work up done at the [facility], his Troponin were high @ 0.72 and T wave abnormality on the EKG. Patient was started on heparin. However pt denied any active CP. He was then transferred to [facility] for further care. Patient was admitted and cardiology and CT surgery were consulted. On , patient underwent cardiac catheterization and was found to have severe 3 vessel CAD and an LVEF 35%. The patient was offered other high risk CABG or high risk left main PCI. Per the recommendation of Cardiothoracic surgery: While the patient would probably better long-term result from CABG, the operation is at considerable risk given his current debilitated state and diminished LVEF. With either treatment, patient would require transfer to a tertiary Medical Center. Since the patient's doctors are at [facility], patient will be transferred there. - Time Spent with Patient Total time spent providing and/or coordinating discharge services: Greater than 30 minutes (41 minutes) - Constitutional Vitals: Temp Pulse Resp BP Pulse Ox 98.9 F 89 16 101/52 99 12/16/17 06:44 03/07/17 06:44 03/07/17 06:44 03/07/17 06:44 03/07/17 06:44 General appearance: Present: A&O X 3, no acute distress, answers questions appropriately - Head Head exam: Present: atraumatic, normocephalic - Eye Eye exam: Present: PERRL, conjuntiva pink, sclera anicteric Pupils: Present: PERRL - Neck Neck exam general surgery: Present: supple, trachea midline. Absent: lymphadenopathy - Respiratory Respiratory exam: Present: CTAB. Absent: accessory muscle use, rales, rhonchi, wheezes - Cardiovascular Cardiovascular exam: Present: RRR, +S1, +S2. Absent: diastolic murmur, gallop, rubs, systolic murmur - Extremities Exam Extremities exam: Present: warm, radial pulses palpable and symmetrical. Absent : calf tenderness, cyanotic, pedal edema - Skin Skin exam: Present: dry, intact <Clem Gaytan H - Last Filed: 03/07/17 12:46> Date of Encounter: 03/07/17 Procedures/tests Complete & Pending: Procedures Performed prior 72 hours Category Date Time Status CL Cardiac Catheterization [CL] Routine Medical Accountant 03/06/17 14:59 Completed ECG 12 lead ECG [ECG] AM 0600 Y 03/06/17 06:00 Completed ECG 12 lead ECG [ECG] Routine Y 03/06/17 09:18 Completed EV echocardiogram Routine Y 03/06/17 10:16 Completed Date of admission: 03/06/17 00:51 Primary care physician: Patrick Long MD Consults: 03/06/17 01:36 Consult to Cardiology [CONS] Routine Comment: Consulting Provider: Cardiology Maritza Reason for Consult: Acute NSTEMI Call Completed: Yes 03/06/17 15:58 Consult to Cardiac Rehabilitation-Phase1 [CONS] Routine Comment: Reason for Consult: NSTEMI Call Completed: No Hospital course: Mr. Goodson is a 66 year old male - Time Spent with Patient Total time spent providing and/or coordinating discharge services: - Constitutional Vitals: Temp Pulse Resp BP Pulse Ox 98.9 F 89 16 101/52 99 03/07/17 06:44 03/07/17 06:44 03/07/17 06:44 03/07/17 06:44 03/07/17 06:44 - Attending Attestation /p C, which demonstrated significant LM, osital LAD, and proximal Cx stenoses. Patient evaluated by CT surgery, referral recommended CABG vs high risk PCI. I examined this patient and my medical decision-making was reviewed with the Resident Physician. I agree with the documented findings, disposition and treatment plan as described except to the extent set forth below.
== END 2017-03-07 16:02 | disposition critical access hospital (66) | DRG 281 ==
LOC: 2ANU
PROVIDERS: ADMIT Family Medicine; ATTEND Internal Medicine